=== PATIENT | female | born 1970 | race Caucasian/White ===

== ENCOUNTER 2016-09-13 04:28 | Emergency (ER) | payer OTHER ==
[~2016-09-13] VITALS: Ht 165.1 cm; Wt 63.1 kg
[~2016-09-13 04:28] MED LIST: ABILIFY20 MG PO; ALBUTEROL17 GM IH; ALEVE220 MG PO; ANTARA90 MG PO; CLONAZEPAM1 MG PO; CLONIDINE HCL0.1 MG PO; DIAZEPAM10 MG PO; DILAUDID4 MG PO; DILAUDID8 MG PO; DOCUSATE SODIU100 MG PO; ENDOCET 5-3251 EACH PO; FLOVENT 22120 INHALA IH; FOLIC ACID1 MG PO; Flovent 110 mcg IH; IBUPROFEN600 MG PO; IMITREX100 MG PO; IRON325 M1 PO; KLONOPIN1 MG PO; LYRICA200 MG PO; MAXALT10 MG PO; METHADONE10 MG PO; Motrin PO; NEXIUM40 MG PO; OMEPRAZOLE20 MG PO; OXYCODONE HCL5 M1 PO; PROAIR HFA8.5 GM IH; PROAIR RESPICL90 MCG IH; REMERON15 M2 PO; RIZATRIPTAN10 MG PO; ROXICODONE5 MG PO; Remeron PO; SEROQUEL XR150 MG PO; SEROQUEL XR300 MG PO; SERTRALINE HCL100 MG PO; SUBOXONE 8 MG-1 EAC2 SL; SUMATRIPTAN SU100 MG PO; TRAMADOL HCL50 MG PO; TRAZODONE HCL50 MG PO; TRILIPIX45 MG PO; VALIUM10 MG PO; VITAMIN D2000 UNIT PO; WOMEN'S DAILY1 EAC1 PO; ZOLOFT100 M1 PO; Zoloft PO; risperDAL PO
[2016-09-13] MEDS ORDERED: NEURONTIN100 MG PO (05:04)
[2016-09-13 12:56] VITALS: BP 113/77
== END 2016-09-13 13:01 | disposition home or self-care (01) ==
LOC: EME 04:28
DX: R10.9 Unspecified abdominal pain (principal); G89.29 Other chronic pain; M54.5 Low back pain; M79.605 Pain in left leg; J45.909 Unspecified asthma, uncomplicated; F17.200 Nicotine dependence, unspecified, uncomplicated
CPT/HCPCS: 99281; 99285; J1100

== ENCOUNTER 2016-12-20 06:04 | Emergency (ER) | payer OTHER ==
[~2016-12-20] VITALS: Ht 165.1 cm; Wt 59.6 kg
[~2016-12-20 06:04] MED LIST changes: +NEURONTIN100 MG PO
[2016-12-20 08:02] LABS: EOSINOPHIL (%) 0 % (0-5); HEMATOCRIT 37.6 % (36.0-46.0); IMMATURE GRANULOCYTE (%) 0.5 % (0.0-0.7); IMMATURE GRANULOCYTE COUNT 0.1 K/uL; INSTRUMENT ABS NEUTROPHIL CT 8.5 K/uL; MCH 26.7 PG (29.0-34.0); MCHC 32.7 G/DL (30.0-36.0); MCV 81.7 FL (83-99); MEAN PLAT.VOLUME 9.2 uM^3 (9.5-12.4); MONOCYTE (%) 3.7 % (3-12); MONOCYTE COUNT 0.4 K/uL (0-0.8); NEUTROPHIL (%) 85.3 % (45-76); NEUTROPHIL COUNT 8.5 K/uL (1.8-6.4); PLATELET COUNT 376 K/uL (156-360); RBC DIS.WIDTH-CV 14.6 % (11.8-14.6); RBC DIS.WIDTH-SD 43.7 % (39-53); WHITE BLOOD COUNT 9.9 K/uL (4.1-10.2)
[2016-12-20 08:22] LABS: CHLORIDE 104 mEq/L (99-109); POTASSIUM 3.6 mEq/L (3.7-5.4); SODIUM 136 mEq/L (136-147)
[2016-12-20 08:24] LABS: GLUCOSE 121 mg/dL (70-99)
[2016-12-20 08:25] LABS: ANION GAP 10 MEQ/L (2-14)
[2016-12-20 08:26] LABS: TOTAL BILIRUBIN 0.3 mg/dL (0.0-1.0)
[2016-12-20 08:28] LABS: ALKALINE PHOSPHATASE 46 IU/L (3-129); GFR ESTIMATE (CALCULATED) > 59 mL/min/
[2016-12-20 08:29] LABS: UREA NITROGEN (BUN) 18 mg/dL (9-23)
[2016-12-20 08:31] LABS: LIPASE 29 U/L (1.0-51.0)
[2016-12-20] MEDS ORDERED: TRAMADOL HCL50 MG PO (09:06)
[2016-12-20] MEDS ORDERED: ZOFRAN ODT4 MG PO (09:06)
[2016-12-20 09:17] VITALS: BP 166/97
[2016-12-20] MEDS ORDERED: CLONAZEPAM1 MG PO (09:30)
[2016-12-20] MEDS ORDERED: SEROQUEL XR300 MG PO (09:31)
== END 2016-12-20 09:36 | disposition home or self-care (01) ==
LOC: EME 06:04
PROVIDERS: Emergency Medicine
DX: G89.29 Other chronic pain (principal); M54.9 Dorsalgia, unspecified; R10.9 Unspecified abdominal pain; R11.2 Nausea with vomiting, unspecified; Z72.0 Tobacco use; J45.909 Unspecified asthma, uncomplicated
CPT/HCPCS: 80053; 83690; 85025; 99281; 99285; J2405; J7030

== ENCOUNTER 2017-07-14 17:24 | Emergency (ER) | payer OTHER ==
[~2017-07-14] VITALS: Ht 165.1 cm; Wt 53.1 kg
[~2017-07-14 17:24] MED LIST changes: +ZOFRAN ODT4 MG PO
[2017-07-14 19:48] LABS: MCH 27.2 PG (29.0-34.0); MCHC 32.7 G/DL (30.0-36.0); MCV 83.1 FL (83-99); MEAN PLAT.VOLUME 9.2 uM^3 (9.5-12.4); PLATELET COUNT 404 K/uL (156-360); RBC DIS.WIDTH-CV 14.1 % (11.8-14.6); RED BLOOD COUNT 4.45 M/uL (3.80-5.20); WHITE BLOOD COUNT 7.6 K/uL (4.1-10.2)
[2017-07-14 20:00] LABS: CHLORIDE 105 mEq/L (99-109); POTASSIUM 4.2 mEq/L (3.7-5.4); SODIUM 140 mEq/L (136-147)
[2017-07-14 20:02] LABS: GLUCOSE 110 mg/dL (70-99)
[2017-07-14 20:03] LABS: ANION GAP 11 MEQ/L (2-14)
[2017-07-14 20:05] LABS: SERUM ETHYL ALCOHOL < 10 mg/dL
[2017-07-14 20:06] LABS: GFR ESTIMATE (CALCULATED) > 59 mL/min/
[2017-07-14 20:08] LABS: UREA NITROGEN (BUN) 21 mg/dL (9-23)
[2017-07-14 20:09] LABS: SALICYLATE < 5.0 MG/DL (15-30)
[2017-07-14 22:19] LABS: AMPHETAMINE NEGATIVE (500 ng/mL); BARBITURATES NEGATIVE (200 ng/mL); BENZODIAZEPINES PRESUMPTIVE POSITIVE (150 ng/mL); COCAINE NEGATIVE (150 ng/mL); METHADONE NEGATIVE (200 ng/mL); METHAMPHETAMINE NEGATIVE (500 ng/mL); OPIATES (MORPHINE) NEGATIVE (100 ng/mL); OXYCODONE NEGATIVE (100 ng/mL); PHENCYCLIDINE NEGATIVE (25 ng/mL); PROPOXYPHENE NEGATIVE (300 ng/mL); THC CANNABINOIDS NEGATIVE (50 ng/mL); TRICYCLIC ANTIDEPRESSANTS PRESUMPTIVE POSITIVE (300 ng/mL)
[2017-07-14 22:20] LABS: ADD MEDTOX COMMENT Y; INTERNAL CONTROLS VALID? YES
[2017-07-14 22:55] LABS: BENZODIAZEPINES, URINE SCREEN POSITIVE (200 ng/mL)
[2017-07-14 23:30] VITALS: BP 122/82
== END 2017-07-14 23:31 | disposition home or self-care (01) ==
LOC: EME 17:24
PROVIDERS: Emergency Medicine
DX: F33.1 Major depressive disorder, recurrent, moderate (principal); T40.2X1A Poisoning by other opioids, accidental (unintentional), initial encounter; Z91.5 Personal history of self-harm; J45.909 Unspecified asthma, uncomplicated; G43.909 Migraine, unspecified, not intractable, without status migrainosus; M19.90 Unspecified osteoarthritis, unspecified site; M41.9 Scoliosis, unspecified; M47.9 Spondylosis, unspecified; Z90.710 Acquired absence of both cervix and uterus; Z88.8 Allergy status to other drugs, medicaments and biological substances; Z72.0 Tobacco use
CPT/HCPCS: 80048; 84999; 85027; 90837; 93005; 99281; 99285; G0480; J2310